=== PATIENT | female | born 1945 | race Caucasian/White ===

== ENCOUNTER → 2016-05-15 | Outpatient (CLI) | payer MEDICARE ==
[~2016-05-15] MED LIST: ALDACTONE25 MG PO; CALCIUM CITRAT1 EAC3 PO; COUMADIN 4MG **4 MG PO; COUMADIN6 MG PO; COZAAR100 MG PO; DITROPAN XL10 MG PO; FIBERCON625 MG PO; FISH OIL 1,2001 EAC2 PO; GLUCOTEN CAPLE1 EACH PO; LABETALOL HCL200 MG PO; LEVOTHROID (SY50 MCG PO; LYSINE500 MG PO; MAGNESIUM400 M1 PO; NORVASC10 MG PO; PAIN RELIEF500 MG PO; PREMARIN VAG30 GM TOP; PRILOSEC20 MG PO; PROZAC20 MG PO; RISPERDAL1 MG PO; THERA-VITE W/ B1 TAB PO; VITAMIN C500 M1 PO; VITAMIN D-32000 UNI1 PO; ZOCOR40 MG PO
== END | disposition disaster alternative care site (69) ==
LOC: GBCOE 09:30
DX: Z12.31 Encounter for screening mammogram for malignant neoplasm of breast (principal)
CPT/HCPCS: G0202